=== PATIENT | male | born 1995 | race Caucasian/White ===

== ENCOUNTER 2024-03-27 16:41 | Emergency (ER) | payer OTHER, SELFPAY ==
[2024-03-27 16:44] VITALS: BP 157/84
--- NOTE | 2024-03-27 16:52 | ED.GENMED ---
ED Provider Triage
<Josephine Croft CANVAS MARKER - Last Filed: 03/27/24 17:02>
-
Patient seen by provider in Triage?: Seen in Triage
Attestation: A medical screening examination has been initiated by a qualified medical provider. Based on the assessment performed at this time, it has been determined that an emergent medical condition may exist and the patient has been informed
that further medical evaluation and possible additional diagnostic testing may be needed.
HPI: 28 yo male w no PMHX, presents stating he has been having pain in the left lower quadrant since started a month ago, he was put on light duty at work for few weeks and it went away. It returned around 2 PM today. Had a 'dark' bowel movement
earlier today with 'little red dots in it.' Worse hitting bumps driving in car. [place] nauseous but has not vomited. Denies fever. Denies diarrhea.
GENERAL: Alert , in no apparent distress
EYE: No visual abnormalities.
NECK: Trachea midline
ENT: No visible abnormalities.
LUNGS: No acute respiratory distress
NEUROLOGICAL: Alert and oriented
SKIN: Skin intact. No visible changes.
MUSCULOSKELETAL: Moving extremities normally
PSYCH: Normal and appropriate interaction.
This is a medical evaluation conducted in person to initiate diagnostic evaluation and provide initial therapeutics. Please see further documentation by the treating clinician.
History of Present Illness
<Josephine Croft CANVAS MARKER - Last Filed: 03/27/24 17:02>
General
Chief Complaint: Abdominal Symptoms
Time Seen by Provider: 03/27/24 17:54
<BRE Hardin - Last Filed: 03/27/24 20:28>
General
Source: patient
Exam Limitations: none
History of Present Illness
History of Present Illness:
This is a 28 year old male that comes in with c/o abd pain. States that he had this issue about a month ago and the pain went away. Stats that he was not nauseated at that time. Then today he got up and he had LLQ pain with nausea. States that he
also felt he saw right dots in his stool. Denies any fever, chills, chest pain, SOB, diarrhea, headache, dizziness, urinary burning.
Past History
<BRE Hardin - Last Filed: 03/27/24 20:28>
Past History
ED Past Medical History: Other (Murmur)
ED Past Surgical History: None
Social History
Tobacco: Other (Cigar occasionally)
Alcohol: Occasional
Personal: Single
Living: with family
Review of Systems
<BRE Hardin - Last Filed: 03/27/24 20:28>
Review of Systems
All Other Systems: ROS reviewed and negative except as documented in HPI and ROS
Constitutional: Reports no symptoms; Denies fever or chills
EENT: Reports no symptoms
Respiratory: Denies cough or trouble breathing
Cardiac: Reports no symptoms; Denies chest pain
ABD/GI: Reports abdominal pain, nausea and vomiting; Denies diarrhea
: Reports no symptoms; Denies dysuria, frequency or urgency
Musculoskeletal: Reports no symptoms
Skin: Reports no symptoms
Neurological: Reports no symptoms; Denies dizzy or headache
Psychiatric: Reports no symptoms
Phy Exam
<BRE Hardin - Last Filed: 03/27/24 20:28>
General Physical Exam
General Presentation: well appearing and no apparent distress
General age: appears stated age
General Skin: warm and dry
General Habitus: normal
General Mental: alert
General Hydration: appears well hydrated
ENT Exam
ENT Exam: TM's normal, pharynx normal and neck supple
Eye Exam
Eye Exam: EOMI
Cardiovascular Exam
Cardiovascular Exam: regular rate/rhythm, no edema and normal peripheral pulses
Pulmonary Exam
Pulmonary Exam: lungs clear, no respiratory distress, no rales, chest non tender, no crackles, no rhonchi, no wheezing and no cough
Gastrointestinal Exam
Gastrointestinal Exam: normal bowel sounds, soft, no organomegaly, no pulsatile mass, non distended and tender (LLQ tenderness with palpation)
Musculoskeletal Exam
Musculoskeletal Exam: full ROM and no edema
Skin Exam
Skin Exam: normal color, warm/dry, no rash and no petechia
Psychiatric Exam
Psychiatric Exam: normal mood/affect
Course
<Josephine King Day, CANVAS MARKER - Last Filed: 03/27/24 17:02>
Orders/Labs/Results
Orders:
Orders
03/27/24 16:53
Complete Blood Count/With Diff Urgent
Comprehensive Metabolic Panel Urgent
Lipase Urgent
03/27/24 16:55
CT Abd/pel W Iv And Oral Contr Urgent
Comment:
Reason For Exam: LLQ pain, ?blood in stool
Iohexol [Omnipaque] See Protocol PO NOW STA
03/27/24 17:03
Ondansetron Orally Disint [Zofran Odt (Orally Disintegrating)] 4 mg PO NOW STA
03/27/24 18:09
0.9% Sodium Chloride 1000 ml [Nss] 1,000 ml IV BOLUS
Abnormal Lab Results
03/27/24
16:53
Glucose 110 H mg/dl
(70-99)
Calcium 10.7 H mg/dl
(8.4-10.2)
Total Protein 8.6 H g/dl
(6.3-8.2)
Albumin 5.6 H g/dl
(3.5-5.0)
03/27/24 16:53
03/27/24 16:53
Vital Signs
Initial and Last Documented VS:
Initial Vital Signs
Temp Pulse Resp BP Pulse Ox
98.2 F 97 20 157/84 99
03/27/24 16:44 03/27/24 16:44 03/27/24 16:44 03/27/24 16:44 03/27/24 16:44
Last Documented Vital Signs
Temp Pulse Resp BP Pulse Ox
98.2 F 92 18 117/95 100
03/27/24 16:44 03/27/24 18:00 03/27/24 18:00 03/27/24 18:00 03/27/24 18:00
<BRE Hardin - Last Filed: 03/27/24 20:28>
Orders/Labs/Results
Orders:
Orders
03/27/24 16:53
Complete Blood Count/With Diff Urgent
Comprehensive Metabolic Panel Urgent
Lipase Urgent
03/27/24 16:55
CT Abd/pel W Iv And Oral Contr Urgent
Comment:
Reason For Exam: LLQ pain, ?blood in stool
Iohexol [Omnipaque] See Protocol PO NOW STA
03/27/24 17:03
Ondansetron Orally Disint [Zofran Odt (Orally Disintegrating)] 4 mg PO NOW STA
03/27/24 18:09
0.9% Sodium Chloride 1000 ml [Nss] 1,000 ml IV BOLUS
Abnormal Lab Results
03/27/24
16:53
Glucose 110 H mg/dl
(70-99)
Calcium 10.7 H mg/dl
(8.4-10.2)
Total Protein 8.6 H g/dl
(6.3-8.2)
Albumin 5.6 H g/dl
(3.5-5.0)
03/27/24 16:53
03/27/24 16:53
Glucose nonfasting. calcium slightly elevated. Total protein slightly elevated. Albumin elevated. Lipase normal at 102
Vital Signs
Initial and Last Documented VS:
Initial Vital Signs
Temp Pulse Resp BP Pulse Ox
98.2 F 97 20 157/84 99
03/27/24 16:44 03/27/24 16:44 03/27/24 16:44 03/27/24 16:44 03/27/24 16:44
Last Documented Vital Signs
Temp Pulse Resp BP Pulse Ox
98.2 F 92 18 117/95 100
03/27/24 16:44 03/27/24 18:00 03/27/24 18:00 03/27/24 18:00 03/27/24 18:00
<BRE Hardin - Last Filed: 03/27/24 20:28>
MDM/Problems Addressed
Differential Diagnosis Includes:
Diverticulitis, Colitis,
MDM/Problems Addressed:
This is a 28 year old male that comes in with c/o left sided abd pain. States that he had pain about a month ago and it went away. States that at that time he had no nausea. States that this time with the pain he is nauseated.
Will get labs, CT scan. Give IV fluids and medicate for nausea.
Back into see patient. Explained that he has mild constipation. There is not inflammatory process or obstruction. Patient to increase his water intake to 8-8oz glasses daily. Follow up with the family doctor as needed. Return with any concerns
Chronic conditions affecting care:
NA
Acute Exacerbation and/or Progression of Chronic Illness:
NA
<BRE Hardin - Last Filed: 03/27/24 20:28>
*Radiology
Radiology exam reviewed: radiology read reviewed (CT-No significant abnormality. No acute inflammatory process within the abdomen or pelvis. No bowel obstruction. Mild colonic fecal burden. No obstructive uropathy. )
*Pulse Oximetry
Patient hypoxic: no
*EKG
Interpreted by ED Provider?: NA
Rate: EKG- N/A
*Head Bone Grinder Interpretation
Rate: Head Bone Grinder- N/A
*Critical Care Note
Total Time (30-74mins, 75-104mins- exclusive of procedures): Not Applicable
ED Attending Note
<Josephine Croft NP - Last Filed: 03/27/24 17:02>
-
Portions of this chart may have been created with voice recognition software.� Occasional wrong word or��sound alike� substitutions may have occurred due to the inherent limitations of voice recognition software.
Discharge Plan
Departure
Patient Disposition: Home (Routine Discharge)
Date of Disposition: 03/27/24
Time of Disposition: 20:21
Patient with high blood pressure during this ER visit?: No
Condition: Good
Covid-19: Not Applicable
Discharge Problem:
Constipation
Instructions: Constipation, Adult (DC)
Prescriptions:
No Action
No Current Medications
0
Referrals:
Jameson Fontanez MD [Family Provider] - Call in 1-3 days for appt
Activity Restrictions/Additional Instructions:
As discussed, your blood work is normal. Your CT is negative for any acute process but shows mild stool burden. Please increase your water intake to 8-8oz glasses daily. Follow up with the family doctor as needed. IF YOU HAVE ANY OTHER CONCERNS
PLEASE RETURN TO THE EMERGENCY ROOM.
Interventions
Interventions:
*Risk Screen - Suicide Last Done: 03/27/24 17:58
*General Assessment Last Done: 03/27/24 16:44
*Neglect/Abuse Screening Last Done: 03/27/24 17:58
ED- Fall Risk Assessment Last Done: 03/27/24 17:58
*ED COVID-19 Vaccine History Last Done: 03/27/24 17:58
[facility]-Vlomwt-Drphcpiznx Assessment Last Done: 03/27/24 17:58
Discharge Date and Time
Print Language: GEORGIAN
[2024-03-27 16:59] LABS: % Basophils 0.5 % (0-2); % Eosinophils 0.4 % (0-6); % Immature Granulocytes 0.4 % (0-0.5); % Lymphocytes 24.8 % (20.5-51.1); % Monocytes 7.3 % (1.7-9.3); % Neutrophils 66.6 % (42.2-75.2); Absolute Lymphocytes 1.9 10^3/uL (1.2-3.4); Absolute Monocytes 0.6 10^3/uL (0.1-0.6); Hematocrit 47.1 % (39.0-52.0); Hemoglobin 16.6 g/dL (13.0-18.0); Mean Corp Hgb Conc. 35.2 g/dL (33.0-37.0); Mean Corpuscular Hgb 30.5 pg (27.0-31.0); Mean Corpuscular Volume 86.6 fL (80.0-94.0); Mean Platelet Volume 9.5 fL (7.4-10.4); Nucleated Red Blood Cells % 0 % (-); Platelet Count 288 10^3/uL (130-400); Red Blood Cell Count 5.44 10^6/uL (4.70-6.10); Red Cell Dist. Width 12.9 % (11.5-14.5); White Blood Cell Count 7.5 10^3/uL (4.8-10.8)
[2024-03-27] MEDS: OMNIPAQUE 50 ML PO (17:09)
[2024-03-27] MEDS: ZOFRAN ODT (ORALLY DISINTEGRATING) 4 MG PO (17:09)
[2024-03-27 17:16] LABS: ALT (SGPT) 28 U/L (0-50); AST (SGOT) 27 U/L (17-59); Albumin 5.6 g/dl (3.5-5.0); Alkaline Phosphatase 44 U/L (38-126); Blood Urea Nitrogen 18 mg/dl (9-20); Calcium 10.7 mg/dl (8.4-10.2); Carbon Dioxide 25 mmol/L (22-30); Chloride 104 mmol/L (98-107); Glucose 110 mg/dl (70-99); Lipase 102 U/L (23-300); Sodium 143 mmol/L (135-145); Total Bilirubin 0.5 mg/dl (0.2-1.3); Total Protein 8.6 g/dl (6.3-8.2); eGFR > 60.00
[2024-03-27 17:58] VITALS: BMI 23.1
[2024-03-27 18:00] VITALS: BP 117/95
[2024-03-27] MEDS: NSS 1000 IV (18:11)
== END 2024-03-27 20:41 | disposition home or self-care (01) ==
LOC: EMR 16:41
PROVIDERS: Registered Nurse; EMERGENCY PHYSICIAN Emergency Medicine; FAMILY PHYSICIAN Family Medicine
DX: K59.00 Constipation, unspecified (principal); F17.290 Nicotine dependence, other tobacco product, uncomplicated
CPT/HCPCS: 99284; 96360; 74177; 80053; 83690; 85025; Q9967

== ENCOUNTER 2024-07-25 06:18 | Day surgery (SDC) | payer OTHER, SELFPAY | END 2024-07-25 11:38 | disposition home or self-care (01) | LOC: GI 06:18 | PROVIDERS: ATTENDING PHYSICIAN Internal Medicine Gastroenterology | DX: R19.4 Change in bowel habit (principal); K64.8 Other hemorrhoids | CPT/HCPCS: 45378 ==